=== PATIENT | male | born 1955 | race Caucasian/White ===

== ENCOUNTER 2018-01-21 15:23 | Emergency (ER) | payer MEDICARE, OTHER ==
[2018-01-21] MEDS ORDERED: LORazepam 2 MG/ML INJ IV STA (15:32)
--- NOTE | 2018-01-21 15:35 | ED ---
Chest Pain HPI - General Stated Complaint: Chest Pain Time Seen by Provider: 01/21/18 15:25 Source: RN notes reviewed, old records reviewed - History of Present Illness Initial Comments: 62-year-old male presents emergency department today from [facility]. Patient has a long history of anxiety. They were trying to evaluate the Patient and he started to become anxious and complained of some chest discomfort. He reports that he then stood up, tripped and fell. He reports he did fall onto chest. He denies hitting his head when he fell. He denies any pain from injuries from falling. Patient has history of high blood pressure. Patient denies any recent fever, chills, shortness of breath, chest pain, back pain, abdominal pain, nausea vomiting, numbness or tingling, dysuria or hematuria, constipation or diarrhea, headaches or visual changes, or any other current symptoms - Related Data Home Medications Medication Instructions Recorded Confirmed No Known Home Medications 10/22/14 11/23/14 Allergies Allergy/AdvReac Type Severity Reaction Status Date / Time procaine HCl [From Novocain] Allergy Unknown Verified 11/23/14 16:12 Review of Systems ROS Statement: Those systems with pertinent positive or pertinent negative responses have been documented in the HPI. ROS Other: All systems not noted in ROS Statement are negative. EKG Findings - EKG Comments: EKG Findings:: EKG shows sinus rhythm with PACs. Otherwise normal EKG. Jugular 77.. Was 172. QRS ration 88. QT QTc is 388/439ms. Past Medical History Past Medical History: Hyperlipidemia, Hypertension History of Any Multi-Drug Resistant Organisms: None Reported Past Surgical History: No Surgical Hx Reported Past Psychological History: Anxiety Smoking Status: Former smoker Past Alcohol Use History: None Reported Past Drug Use History: None Reported General Exam - General Exam Comments Initial Comments: Patient is appearing 65-year-old male. Alert and oriented 3. No acute distress. Patient is somewhat delayed in conversation. Nursing staff that is chronic. General appearance: alert, in no apparent distress Head exam: Present: atraumatic, normocephalic, normal inspection Eye exam: Present: normal appearance ENT exam: Present: normal exam, mucous membranes moist Neck exam: Present: normal inspection. Absent: tenderness, meningismus, lymphadenopathy Respiratory exam: Present: normal lung sounds bilaterally. Absent: respiratory distress, wheezes, rales, rhonchi, stridor Cardiovascular Exam: Present: regular rate, normal rhythm, normal heart sounds. Absent: systolic murmur, diastolic murmur, rubs, gallop, clicks GI/Abdominal exam: Present: soft, normal bowel sounds. Absent: distended, tenderness, guarding, rebound, rigid Extremities exam: Present: normal inspection, full ROM, normal capillary refill , other (Right arm tremor). Absent: tenderness, pedal edema, joint swelling, calf tenderness Back exam: Present: normal inspection Neurological exam: Present: alert, oriented X3, CN II-XII intact Psychiatric exam: Present: normal affect, normal mood Skin exam: Present: warm, dry, intact, normal color. Absent: rash Course Vital Signs 01/21/18 01/21/18 01/21/18 15:33 15:35 16:42 Temperature 97.1 F L Pulse Rate 73 76 Pulse Rate [ 73 Logistics Intern ] Respiratory 18 18 Rate Blood Pressure 174/76 191/78 O2 Sat by Pulse 98 99 Oximetry 01/21/18 18:00 Temperature 97.9 F Pulse Rate 79 Pulse Rate [ Logistics Intern ] Respiratory 18 Rate Blood Pressure 180/81 O2 Sat by Pulse 100 Oximetry Chest Pain MDM - MDM Patient is a 62-year-old male presents emergency department today which may have anxiety. He reports that he was at [facility]. Had a panic attack started to develop some chest pain. He is also known to have a blood pressure. They called EMS. Patient is given Ativan emergency department. CVG was reviewed and negative for any acute process. Normal troponin. He otherwise states he feels well after receiving Ativan and denies any chest pain. Patient's case was negative. Patient states he wants to be discharged home and he plans to go back [facility]. I discussed the Patient has any further episodes chest pain he must return. Patient agrees to treatment plan will comply. Disposition Clinical Impression: Atypical chest pain, Anxiety Disposition: HOME SELF-CARE Condition: Good Instructions: Chest Pain (ED) Additional Instructions: Patient has a follow up with his primary care physician. If there is any further episodes of chest pain or discomfort please return to emergency department. Is patient prescribed a controlled substance at d/c from ED?: No Referrals: Padilla Dent MD [Primary Care Provider] - 1-2 days Time of Disposition: 17:33
[2018-01-21 16:04] VITALS: RESP 18
--- NOTE | 2018-01-21 16:16 | XR ---
EXAMINATION TYPE: XR chest 2V DATE OF EXAM: 01/21/2018 COMPARISON: Prior chest x-ray 11/23/2014 HISTORY: Chest pain TECHNIQUE: Frontal and lateral views of the chest are obtained. FINDINGS: There is no focal air space opacity, pleural effusion, or pneumothorax seen. The cardiac silhouette size is within normal limits. The osseous structures are intact. Patient is rotated and there are overlying cardiac leads. IMPRESSION: No acute cardiopulmonary process. Rotated exam, follow-up as indicated.
[2018-01-21 16:48] LABS: Partial Thromboplastin Time 25.6 sec (22.0-30.0); Prothrombin Time 9.6 sec (9.0-12.0)
[2018-01-21 16:50] LABS: Albumin 3.8 g/dL (3.5-5.0); Calcium 9.7 mg/dL (8.4-10.2); Potassium 4.5 mmol/L (3.5-5.1); Total Bilirubin 0.8 mg/dL (0.2-1.3)
[2018-01-21 16:53] LABS: Basophils % (A) 1 %; Eosinophils # (A) 0.1 k/uL (0-0.7); Eosinophils % (A) 1 %; HCT 41.7 % (39.0-53.0); HGB 14.1 gm/dL (13.0-17.5); Lymphocytes # (A) 0.9 k/uL (1.0-4.8); Lymphocytes % (A) 17 %; MCH 30.6 pg (25.0-35.0); MCHC 33.7 g/dL (31.0-37.0); MCV 90.8 fL (80.0-100.0); Mean Platelet Volume 6.5; Monocytes # (A) 0.4 k/uL (0-1.0); Monocytes % (A) 6 %; Neutrophils % (A) 72 %; Platelet Count 191 k/uL (150-450); RDW 13.9 % (11.5-15.5); WBC 5.6 k/uL (3.8-10.6)
[2018-01-21 16:59] LABS: Creatine Kinase 230 U/L (55-170)
[2018-01-21 17:12] LABS: Creatine Kinase MB 2.8 ng/mL (0.0-2.4); Troponin I <0.012 ng/mL (0.000-0.034)
[2018-01-21 18:08] VITALS: BP 180/81; PULSE 79; TEMP 97.9
== END 2018-01-21 18:01 | disposition home or self-care (01) ==
LOC: EC 15:23
DX: F41.9 Anxiety disorder, unspecified (principal); Z87.891 Personal history of nicotine dependence; Z88.4 Allergy status to anesthetic agent; W01.0XXA Fall on same level from slipping, tripping and stumbling without subsequent striking against object, initial encounter; Y93.89 Activity, other specified; Y92.239 Unspecified place in hospital as the place of occurrence of the external cause
CPT/HCPCS: 36415; 93005; 80053; 82550; 82553; 83735; 84484; 85025; 85610; 85730; 71046; 99285; 96374; J2060

== ENCOUNTER 2018-01-22 15:32 | Emergency (ER) | payer MEDICARE, OTHER ==
[2018-01-22 15:44] VITALS: TEMP 97.1
[2018-01-22] MEDS ORDERED: LORazepam 1 MG TAB PO STA (15:56)
--- NOTE | 2018-01-22 15:57 | ED ---
General Adult HPI - General Chief complaint: Anxiety Stated complaint: anxiety Time Seen by Provider: 01/22/18 15:36 Source: patient, RN notes reviewed Mode of arrival: EMS Limitations: no limitations - History of Present Illness Initial comments: Patient is a pleasant 4 he 2-year-old male presenting to the emergency department with complaints of anxiety. Patient states he has felt anxious all day today. Patient took one of his common (morning without improvement of symptoms. Patient states she just feels anxious and shaky. Patient states he does frequently get problems with this, approximately every couple of weeks. Patient denies any suicidal or homicidal thoughts. No new physical complaints. No hallucinations. No alcohol or street drug use. - Related Data Home Medications Medication Instructions Recorded Confirmed No Known Home Medications 10/22/14 11/23/14 Allergies Allergy/AdvReac Type Severity Reaction Status Date / Time procaine HCl [From Novocain] Allergy Unknown Verified 11/23/14 16:12 Review of Systems ROS Statement: Those systems with pertinent positive or pertinent negative responses have been documented in the HPI. ROS Other: All systems not noted in ROS Statement are negative. Constitutional: Denies: fever Eyes: Denies: eye pain ENT: Denies: ear pain Respiratory: Denies: cough Cardiovascular: Denies: chest pain Endocrine: Denies: fatigue Gastrointestinal: Denies: abdominal pain Genitourinary: Denies: dysuria Musculoskeletal: Denies: back pain Skin: Denies: rash Neurological: Denies: headache Psychiatric: Reports: anxiety Past Medical History Past Medical History: Hyperlipidemia, Hypertension History of Any Multi-Drug Resistant Organisms: None Reported Past Surgical History: Appendectomy Past Psychological History: Anxiety Smoking Status: Former smoker Past Alcohol Use History: None Reported Past Drug Use History: None Reported General Exam Limitations: no limitations General appearance: alert, anxious Head exam: Present: atraumatic Eye exam: Present: normal appearance, PERRL ENT exam: Present: normal oropharynx Neck exam: Present: normal inspection Respiratory exam: Present: normal lung sounds bilaterally Cardiovascular Exam: Present: regular rate, normal rhythm GI/Abdominal exam: Present: soft. Absent: tenderness Extremities exam: Present: normal inspection Neurological exam: Present: alert, oriented X3, CN II-XII intact. Absent: motor sensory deficit Psychiatric exam: Present: anxious Skin exam: Present: normal color Course Vital Signs 01/22/18 15:40 Temperature 97.1 F L Pulse Rate 65 Respiratory 18 Rate Blood Pressure 141/109 O2 Sat by Pulse 100 Oximetry - Reevaluation(s) Reevaluation #1: 01/22/18 15:57 Patient is comfortable with Ativan and discharged. Blood pressure will be rechecked prior to discharge. Disposition Clinical Impression: Acute anxiety Disposition: HOME SELF-CARE Condition: Stable Instructions: Generalized Anxiety Disorder (ED) Additional Instructions: Please follow-up with your primary care physician and psychiatrist and counselor in the next couple days for recheck. Return for thoughts of self-harm , worsening symptoms or other concerns. Is patient prescribed a controlled substance at d/c from ED?: No Referrals: Padilla Dent MD [Primary Care Provider] - 1-2 days Time of Disposition: 16:00
[2018-01-22 17:09] VITALS: BP 156/86; PULSE 71; RESP 18
== END 2018-01-22 17:07 | disposition home or self-care (01) ==
LOC: EC 15:32
DX: F41.9 Anxiety disorder, unspecified (principal); Z87.891 Personal history of nicotine dependence; Z88.4 Allergy status to anesthetic agent
CPT/HCPCS: 82075; 99284

== ENCOUNTER 2018-01-23 10:24 | Emergency (ER) | payer MEDICARE, OTHER ==
--- NOTE | 2018-01-23 10:52 | ED ---
General Adult HPI - General Chief complaint: Anxiety Stated complaint: panic attacks Time Seen by Provider: 01/23/18 10:36 Source: patient, RN notes reviewed Mode of arrival: wheelchair Limitations: no limitations - History of Present Illness Initial comments: Patient's a 62-year-old male presented to the emergency room today with a chief complaint of increased anxiety. Patient does admit that he's been seen here in the emergency room the past 3 days for his anxiety. He does admit to feeling shaky and having some left-sided chest pain. States this is consistent with anxiety that is had. He states he usually takes Klonopin. He states he's been unable FAMILY doctor was planning to stop either today. Patient states is the same symptoms that he's had over the last few days. States he's been given Ativan here the emergency room which is helped his symptoms. He denies any other complaints or symptoms at this time. Patient denies any recent fever, chills, shortness of breath, back pain, abdominal pain, nausea or vomiting, numbness or tingling, headaches or visual changes, or any other complaints. - Related Data Home Medications Medication Instructions Recorded Confirmed Atenolol [Tenormin] 50 mg PO DAILY 01/22/18 01/23/18 Cariprazine HCl [Vraylar] 6 mg PO HS 01/22/18 01/23/18 [place]-3 Acid Ethyl Esters [Lovaza] 1 gm PO DAILY 01/22/18 01/23/18 Omeprazole 20 mg PO DAILY 01/22/18 01/23/18 Simvastatin 40 mg PO HS 01/22/18 01/23/18 lamoTRIgine [LaMICtal] 200 mg PO DAILY 01/22/18 01/23/18 clonazePAM [KlonoPIN] 0.5 mg PO TID 01/23/18 01/23/18 clonazePAM [KlonoPIN] 1 mg PO HS 01/23/18 01/23/18 Allergies Allergy/AdvReac Type Severity Reaction Status Date / Time procaine HCl [From Novocain] Allergy Unknown Verified 01/23/18 11:11 Review of Systems ROS Statement: Those systems with pertinent positive or pertinent negative responses have been documented in the HPI. ROS Other: All systems not noted in ROS Statement are negative. Past Medical History Past Medical History: Hyperlipidemia, Hypertension History of Any Multi-Drug Resistant Organisms: None Reported Past Surgical History: Appendectomy Past Psychological History: Anxiety Smoking Status: Former smoker Past Alcohol Use History: None Reported Past Drug Use History: None Reported General Exam - General Exam Comments Initial Comments: General: The patient is awake and alert, in no distress, and does not appear acutely ill. Eye: Pupils are equal, round and reactive to light, extra-ocular movements are intact. No nystagmus. There is normal conjunctiva bilaterally. No signs of icterus. Ears, nose, mouth and throat: There are moist mucous membranes and no oral lesions. Neck: The neck is supple, there is no tenderness or JVD. Cardiovascular: There is a regular rate and rhythm. No murmur, rub or gallop is appreciated. Respiratory: Lungs are clear to auscultation, respirations are non-labored, breath sounds are equal. No wheezes, stridor, rales, or rhonchi. Musculoskeletal: Normal ROM, no tenderness. Strength 5/5. Sensation intact. Pulses equal bilaterally 2+. Neurological: A&O x 3. CN II-XII intact, There are no obvious motor or sensory deficits. Coordination appears grossly intact. Speech is normal. Skin: Skin is warm and dry and no rashes or lesions are noted. Psychiatric: Cooperative, appropriate mood & affect, normal judgment. Limitations: no limitations Course Vital Signs 01/23/18 01/23/18 10:28 12:28 Temperature 97.4 F L 97 F L Pulse Rate 86 56 L Respiratory 20 20 Rate Blood Pressure 182/84 138/75 O2 Sat by Pulse 97 97 Oximetry EKG Findings - EKG Comments: EKG Findings:: EKG performed at 1104: Shows a normal sinus rhythm at 73 bpm. NM 154. Curious 86. QT/QTC 382/420. No acute changes Medical Decision Making - Medical Decision Making Patient reexamined at this time shows no signs of distress she is resting comfortably. States feeling much better after Ativan here in the emergency room. Patient states that he had symptoms of shaking, chest pain which is consistent with his anxiety. Patient's labs been reviewed are unremarkable. Negative cardiac enzymes. EKG showing no acute changes. Patient does not that is feeling better at this time will be discharged home and is advised to follow- up with family doctor in the next 2 days. Advised return for any other concerns. - Lab Data Result diagrams: 01/23/18 11:44 01/23/18 11:44 Lab Results 01/23/18 01/23/18 01/23/18 Range/Units 11:44 11:44 11:44 WBC 7.0 (3.8-10.6) k/uL RBC 4.75 (4.30-5.90) m/uL Hgb 14.5 (13.0-17.5) gm/dL Hct 43.3 (39.0-53.0) % MCV 91.2 (80.0-100.0) fL MCH 30.5 (25.0-35.0) pg MCHC 33.4 (31.0-37.0) g/dL RDW 14.1 (11.5-15.5) % Plt Count 206 (150-450) k/uL Neutrophils % 72 % Lymphocytes % 16 % Monocytes % 7 % Eosinophils % 1 % Basophils % 1 % Neutrophils # 5.0 (1.3-7.7) k/uL Lymphocytes # 1.1 (1.0-4.8) k/uL Monocytes # 0.5 (0-1.0) k/uL Eosinophils # 0.1 (0-0.7) k/uL Basophils # 0.1 (0-0.2) k/uL PT (9.0-12.0) sec INR (<1.2) APTT (22.0-30.0) sec Sodium 141 (137-145) mmol/L Potassium 4.6 (3.5-5.1) mmol/L Chloride 105 (98-107) mmol/L Carbon Dioxide 27 (22-30) mmol/L Anion Gap 9 mmol/L BUN 31 H (9-20) mg/dL Creatinine 1.52 H (0.66-1.25) mg/dL Est GFR (CKD-EPI)AfAm 56 (>60 ml/min/1.73 sqM) Est GFR (CKD-EPI)NonAf 48 (>60 ml/min/1.73 sqM) Glucose 94 (74-99) mg/dL Calcium 9.7 (8.4-10.2) mg/dL Total Bilirubin 0.8 (0.2-1.3) mg/dL AST 27 (17-59) U/L ALT 48 (21-72) U/L Alkaline Phosphatase 62 (38-126) U/L Total Creatine Kinase 232 H (55-170) U/L CK-MB (CK-2) 2.2 (0.0-2.4) ng/mL CK-MB (CK-2) Rel Index 0.9 Troponin I <0.012 (0.000-0.034) ng/mL Total Protein 7.5 (6.3-8.2) g/dL Albumin 4.1 (3.5-5.0) g/dL Urine Color Urine Appearance (Clear) Urine pH (5.0-8.0) Ur Specific [place] (1.001-1.035) Urine Protein (Negative) Urine Glucose (UA) (Negative) Urine Ketones (Negative) Urine Blood (Negative) Urine Nitrite (Negative) Urine Bilirubin (Negative) Urine Urobilinogen (<2.0) mg/dL Ur Leukocyte Esterase (Negative) 01/23/18 01/23/18 Range/Units 11:44 12:29 WBC (3.8-10.6) k/uL RBC (4.30-5.90) m/uL Hgb (13.0-17.5) gm/dL Hct (39.0-53.0) % MCV (80.0-100.0) fL MCH (25.0-35.0) pg MCHC (31.0-37.0) g/dL RDW (11.5-15.5) % Plt Count (150-450) k/uL Neutrophils % % Lymphocytes % % Monocytes % % Eosinophils % % Basophils % % Neutrophils # (1.3-7.7) k/uL Lymphocytes # (1.0-4.8) k/uL Monocytes # (0-1.0) k/uL Eosinophils # (0-0.7) k/uL Basophils # (0-0.2) k/uL PT 9.6 (9.0-12.0) sec INR 1.0 (<1.2) APTT 23.9 (22.0-30.0) sec Sodium (137-145) mmol/L Potassium (3.5-5.1) mmol/L Chloride (98-107) mmol/L Carbon Dioxide (22-30) mmol/L Anion Gap mmol/L BUN (9-20) mg/dL Creatinine (0.66-1.25) mg/dL Est GFR (CKD-EPI)AfAm (>60 ml/min/1.73 sqM) Est GFR (CKD-EPI)NonAf (>60 ml/min/1.73 sqM) Glucose (74-99) mg/dL Calcium (8.4-10.2) mg/dL Total Bilirubin (0.2-1.3) mg/dL AST (17-59) U/L ALT (21-72) U/L Alkaline Phosphatase (38-126) U/L Total Creatine Kinase (55-170) U/L CK-MB (CK-2) (0.0-2.4) ng/mL CK-MB (CK-2) Rel Index Troponin I (0.000-0.034) ng/mL Total Protein (6.3-8.2) g/dL Albumin (3.5-5.0) g/dL Urine Color Yellow Urine Appearance Clear (Clear) Urine pH 5.5 (5.0-8.0) Ur Specific [place] 1.023 (1.001-1.035) Urine Protein Trace H (Negative) Urine Glucose (UA) Negative (Negative) Urine Ketones Negative (Negative) Urine Blood Negative (Negative) Urine Nitrite Negative (Negative) Urine Bilirubin Negative (Negative) Urine Urobilinogen 2.0 (<2.0) mg/dL Ur Leukocyte Esterase Negative (Negative) Disposition Clinical Impression: Panic attack Disposition: HOME SELF-CARE Condition: Good Instructions: Generalized Anxiety Disorder (ED) Additional Instructions: Please follow-up with family doctor in the next 2 days. Please return to emergency room if the symptoms increase or worsen or for any other concerns. Is patient prescribed a controlled substance at d/c from ED?: No Referrals: Padilla Dent MD [Primary Care Provider] - 1-2 days Time of Disposition: 13:24
[2018-01-23] MEDS ORDERED: LORazepam 2 MG/ML INJ IV STA (11:16)
--- NOTE | 2018-01-23 12:01 | XR ---
EXAMINATION TYPE: XR chest 2V DATE OF EXAM: 01/23/2018 COMPARISON: 01/21/2018 HISTORY: Shortness of breath TECHNIQUE: Frontal and lateral views of the chest are obtained. FINDINGS: Scattered senescent parenchymal changes noted. No evidence for infiltrate. No evidence for atelectasis. Heart size is stable. Mediastinal structures are stable and grossly unremarkable. No evidence for hilar prominence. Degenerative changes dorsal spine. IMPRESSION: 1. No evidence for acute pulmonary disease.
[2018-01-23 12:15] LABS: Basophils # (A) 0.1 k/uL (0-0.2); Basophils % (A) 1 %; Eosinophils # (A) 0.1 k/uL (0-0.7); Eosinophils % (A) 1 %; HCT 43.3 % (39.0-53.0); HGB 14.5 gm/dL (13.0-17.5); Lymphocytes # (A) 1.1 k/uL (1.0-4.8); Lymphocytes % (A) 16 %; MCH 30.5 pg (25.0-35.0); MCHC 33.4 g/dL (31.0-37.0); MCV 91.2 fL (80.0-100.0); Mean Platelet Volume 6.6; Monocytes # (A) 0.5 k/uL (0-1.0); Monocytes % (A) 7 %; Neutrophils % (A) 72 %; Platelet Count 206 k/uL (150-450); RBC 4.75 m/uL (4.30-5.90); RDW 14.1 % (11.5-15.5)
[2018-01-23 12:20] LABS: Partial Thromboplastin Time 23.9 sec (22.0-30.0); Prothrombin Time 9.6 sec (9.0-12.0)
[2018-01-23 12:26] LABS: Albumin 4.1 g/dL (3.5-5.0); Calcium 9.7 mg/dL (8.4-10.2); Potassium 4.6 mmol/L (3.5-5.1); Total Bilirubin 0.8 mg/dL (0.2-1.3); Total Protein 7.5 g/dL (6.3-8.2)
[2018-01-23 12:29] VITALS: TEMP 97
[2018-01-23 12:34] LABS: Creatine Kinase 232 U/L (55-170)
[2018-01-23 12:47] LABS: Creatine Kinase MB 2.2 ng/mL (0.0-2.4); Troponin I <0.012 ng/mL (0.000-0.034)
[2018-01-23 13:02] LABS: Appearance,Urine Clear (Clear); Bilirubin,Urine Negative (Negative); Blood,Urine Negative (Negative); Color,Urine Yellow; Glucose,Urine (UA) Negative (Negative); Ketones,Urine Negative (Negative); Leukocyte Esterase,Urine Negative (Negative); Nitrite,Urine Negative (Negative); PH, Urine 5.5 (5.0-8.0); Protein,Urine Trace (Negative); Specific Gravity,Urine 1.023 (1.001-1.035)
[2018-01-23 14:09] VITALS: BP 172/78; PULSE 73; RESP 18
== END 2018-01-23 14:19 | disposition home or self-care (01) ==
LOC: EC 10:24
DX: F41.0 Panic disorder [episodic paroxysmal anxiety] (principal); E78.5 Hyperlipidemia, unspecified; I10 Essential (primary) hypertension; Z87.891 Personal history of nicotine dependence; Z88.4 Allergy status to anesthetic agent; Z79.899 Other long term (current) drug therapy
CPT/HCPCS: 36415; 93005; 80053; 82550; 82553; 84484; 85025; 85610; 85730; 81003; 71046; 99284; 96374; J2060

== ENCOUNTER 2019-02-21 14:05 | Emergency (ER) | payer MEDICARE, OTHER ==
[2019-02-21 14:20] VITALS: RESP 18
--- NOTE | 2019-02-21 14:38 | ED ---
General Adult HPI - General Chief complaint: Psychiatric Symptoms Stated complaint: suicidal Time Seen by Provider: 02/21/19 14:17 Source: patient, EMS Mode of arrival: EMS Limitations: no limitations - History of Present Illness Initial comments: Dictation was produced using [employer] dictation software. please excuse any grammatical, word or spelling errors. Chief Complaint: 63-year-old male past medical history dyslipidemia and hypertension presents with suicidal ideation. History of Present Illness: She 3-year-old male he is currently a resident [facility]. He is high functioning but he is there because of social issues. She was sent here to the emergency department because he stated to the licensed social worker that he is suicidal. He allegedly reported that he wants to find a robe an I beam and hang himself. Patient reports that he's been depressed recently about nothing in particular. Does report that he is upset because in the past he was stressed out because he recalls event were police arrested his "mama." He states he said he didn't mean what is said and wants to just go to [employer] The ROS documented in this emergency department record has been reviewed and confirmed by me. Those systems with pertinent positive or negative responses have been documented in the HPI. All other systems are other negative and/or noncontributory. PHYSICAL EXAM: General Impression: Alert and oriented x3, not in acute distress HEENT: Normocephalic atraumatic, extra-ocular movements intact, pupils equal and reactive to light bilaterally, mucous membranes moist. Cardiovascular: Heart regular rate and rhythm, S1&S2 audible, no murmurs, rubs or gallops Chest: Lungs clear to auscultation bilaterally, no rhonchi, no wheeze, no rales Abdomen: Bowel sounds present, abdomen soft, non-tender, non-distended, no organomegaly Musculoskeletal: Pulses present and equal in all extremities, no peripheral edema Motor: no focal deficits noted Neurological: CN II-XII grossly intact, no focal motor or sensory deficits noted Skin: Intact with no visualized rashes Psych: Normal affect and mood ED course: 63 yo Old male presents with concerns of suicidal ideation. He reported to the licensed social worker that he wanted to hang himself. Patient is apologetic for what he said that he really didn't mean it. He wants to go back to the [facility]. He verbally contracts continues to vikas hurt himself. Vital signs upon arrival are within acceptable limits. Patient has no medical complaints at this time. Physical examination is benign. Patient medically cleared for EPS evaluation. Patient will by EPS and clear for discharge back to [facility]. - Related Data Home Medications Medication Instructions Recorded Confirmed Atenolol [Tenormin] 50 mg PO DAILY 01/22/18 01/23/18 Cariprazine HCl [Vraylar] 6 mg PO HS 01/22/18 01/23/18 [place]-3 Acid Ethyl Esters [Lovaza] 1 gm PO DAILY 01/22/18 01/23/18 Omeprazole 20 mg PO DAILY 01/22/18 01/23/18 Simvastatin 40 mg PO HS 01/22/18 01/23/18 lamoTRIgine [LaMICtal] 200 mg PO DAILY 01/22/18 01/23/18 clonazePAM [KlonoPIN] 0.5 mg PO TID 01/23/18 01/23/18 clonazePAM [KlonoPIN] 1 mg PO HS 01/23/18 01/23/18 Allergies Allergy/AdvReac Type Severity Reaction Status Date / Time procaine HCl [From Novocain] Allergy Unknown Verified 02/21/19 14:20 Review of Systems ROS Statement: Those systems with pertinent positive or pertinent negative responses have been documented in the HPI. ROS Other: All systems not noted in ROS Statement are negative. Past Medical History Past Medical History: Hyperlipidemia, Hypertension History of Any Multi-Drug Resistant Organisms: None Reported Past Surgical History: Appendectomy Past Psychological History: Anxiety, Depression Smoking Status: Former smoker Past Alcohol Use History: None Reported Past Drug Use History: None Reported General Exam Limitations: no limitations Course Vital Signs 02/21/19 02/21/19 14:13 14:21 Temperature 98.2 F Pulse Rate 100 Respiratory 18 Rate Blood Pressure 120/60 O2 Sat by Pulse 97 Oximetry Disposition Clinical Impression: Depression Disposition: HOME SELF-CARE Condition: Good Instructions (If sedation given, give patient instructions): Help Prevent Suicide (ED) Is patient prescribed a controlled substance at d/c from ED?: No Referrals: None,Stated [Primary Care Provider] - 1-2 days Time of Disposition: 16:04
[2019-02-21 17:11] VITALS: BP 153/94; PULSE 74; TEMP 97.7
== END 2019-02-21 17:23 | disposition home or self-care (01) ==
LOC: EC 14:05
DX: F32.9 Major depressive disorder, single episode, unspecified (principal); I10 Essential (primary) hypertension; E78.5 Hyperlipidemia, unspecified; F41.9 Anxiety disorder, unspecified; Z79.899 Other long term (current) drug therapy; Z88.4 Allergy status to anesthetic agent; Z87.891 Personal history of nicotine dependence
CPT/HCPCS: 82075; 99285